=== PATIENT | female | born 1965 | race Native Hawaiian/Other Pacific Islander ===

== ENCOUNTER → 2018-02-16 | Outpatient (CLI) | payer OTHER ==
--- NOTE | 2018-02-16 11:00 | MM ---
Reason for exam: additional evaluation requested from prior study. Last mammogram was performed 4 years and 6 months ago. History: Patient is postmenopausal. Benign US RT VAD breast biopsy of the right breast, August 20, 2013. Physical Findings: Nurse Summary: less than 0.5cm nodule in the right breast at 11-12 o'clock (nurse kp). MG Diagnostic Mammo w CAD JAYSHREE Bilateral CC and MLO view(s) were taken. Prior study comparison: August 20, 2013, right diagnostic mammogram w/CAD. There are scattered fibroglandular densities. Previous mammotome biopsy in the right breast. Stable mass upper outer quadrant right breast at the biopsy site. Palpable marker superior right breast. Asymmetric densities central left breast just above the retroareolar plane disperse on additional view. These results were verbally communicated with the patient and result sheet given to the patient on 02/16/18. ASSESSMENT: Incomplete: need additional imaging evaluation, BI-RAD 0 RECOMMENDATION: Ultrasound of the right breast. (as ordered)
--- NOTE | 2018-02-16 11:03 | USB ---
Reason for exam: additional evaluation requested from abnormal screening. History: Patient is postmenopausal. Benign US RT VAD breast biopsy of the right breast, August 20, 2013. US Breast Limited RT Right limited breast ultrasound including focal area of concern, retroareolar and axilla demonstrates a 10 x 4 x 8mm oval, hypoechoic lesion at 11 o'clock, likely corresponds to the previous biopsied mass, 6 month follow up can be performed and a 4 x 3 x 5mm oval, cystic, benign lesion at 2 o'clock. Scanned 11-3 o'clock. 11 o'clock nurse palpated. These results were verbally communicated with the patient and result sheet given to the patient on 02/16/18. ASSESSMENT: Probably benign, BI-RAD 3 RECOMMENDATION: Follow-up diagnostic mammogram of the right breast in 6 months.
== END ==
LOC: RADMAMWWP 09:23
PROVIDERS: ATTEND Family Medicine
DX: R92.8 Other abnormal and inconclusive findings on diagnostic imaging of breast (principal)
CPT/HCPCS: 77066

== ENCOUNTER → 2018-08-17 | Outpatient (CLI) | payer OTHER ==
--- NOTE | 2018-08-17 13:57 | MM ---
Reason for exam: follow-up at short interval from prior study. Last mammogram was performed 6 months ago. History: Patient is postmenopausal. Benign US RT VAD breast biopsy of the right breast, August 20, 2013. Physical Findings: Nurse did not find any significant physical abnormalities on exam. MG Diagnostic Mammo RT w CAD CC and MLO view(s) were taken of the right breast. Prior study comparison: February 16, 2018, bilateral MG diagnostic mammo w CAD JAYSHREE. August 20, 2013, right diagnostic mammogram w/CAD. The breast tissue is heterogeneously dense. This may lower the sensitivity of mammography. Previous mammotome biopsy in the right breast. Associated focal asymmetry unchanged. Central asymmetric density on MLO is unchanged for 6 months. Additional follow up recommended. These results were verbally communicated with the patient and result sheet given to the patient on 08/17/18. ASSESSMENT: Probably benign, BI-RAD 3 RECOMMENDATION: Follow-up diagnostic mammogram of both breasts in 6 months.
== END | disposition home or self-care (01) ==
LOC: RADMAMWWP 12:43
PROVIDERS: ATTEND Family Medicine
DX: R92.8 Other abnormal and inconclusive findings on diagnostic imaging of breast (principal)
CPT/HCPCS: 77065

== ENCOUNTER → 2019-03-12 | Outpatient (CLI) | payer OTHER ==
--- NOTE | 2019-03-12 14:19 | MM ---
Reason for exam: additional evaluation requested from prior study. Last mammogram was performed 7 months ago. History: Patient is postmenopausal. Benign US RT VAD breast biopsy of the right breast, August 20, 2013. Physical Findings: Nurse did not find any significant physical abnormalities on exam. MG 3D Diag Mammo W/Cad JAYSHREE Bilateral CC and MLO view(s) were taken. Prior study comparison: August 17, 2018, right breast MG diagnostic mammo RT w CAD. February 16, 2018, bilateral MG diagnostic mammo w CAD JAYSHREE. The breast tissue is heterogeneously dense. This may lower the sensitivity of mammography. There is a stable right upper outer quadrant middle depth mass with adjacent biopsy marker. No suspicious abnormality. These results were verbally communicated with the patient and result sheet given to the patient on 03/12/19. ASSESSMENT: Benign, BI-RAD 2 RECOMMENDATION: Routine screening mammogram of both breasts in 1 year.
== END | disposition home or self-care (01) ==
LOC: RADMAMWWP 13:25
PROVIDERS: ATTEND Family Medicine
DX: R92.8 Other abnormal and inconclusive findings on diagnostic imaging of breast (principal)
CPT/HCPCS: 77062; 77066

== ENCOUNTER → 2020-07-05 | Outpatient (CLI) | payer OTHER ==
--- NOTE | 2020-07-07 13:30 | MM ---
Reason for exam: screening (asymptomatic). Last mammogram was performed 1 year and 4 months ago. History: Patient is postmenopausal. Benign US RT VAD breast biopsy of the right breast, August 20, 2013. Physical Findings: A clinical breast exam by your physician is recommended on an annual basis and results should be correlated with mammographic findings. MG Screening Mammo w CAD Bilateral CC and MLO view(s) were taken. Prior study comparison: March 12, 2019, bilateral MG 3d diag mammo w/cad JAYSHREE. August 17, 2018, right breast MG diagnostic mammo RT w CAD. No significant changes when compared with prior studies. ASSESSMENT: Benign, BI-RAD 2 RECOMMENDATION: Routine screening mammogram of both breasts in 1 year.
== END | disposition home or self-care (01) ==
LOC: RADMAMWWP 09:45
PROVIDERS: ATTEND Family Medicine
DX: Z12.31 Encounter for screening mammogram for malignant neoplasm of breast (principal)
CPT/HCPCS: 77067

== ENCOUNTER → 2021-08-21 | Outpatient (CLI) | payer OTHER ==
--- NOTE | 2021-08-22 08:26 | MM ---
Reason for exam: screening (asymptomatic). Last mammogram was performed 1 year and 2 months ago. History: Patient is postmenopausal. Benign US RT VAD breast biopsy of the right breast, August 20, 2013. Physical Findings: A clinical breast exam by your physician is recommended on an annual basis and results should be correlated with mammographic findings. MG 3D Screening Mammo W/Cad Bilateral CC and MLO view(s) were taken. Prior study comparison: July 05, 2020, bilateral MG screening mammo w CAD. March 12, 2019, bilateral MG 3d diag mammo w/cad JAYSHREE. There are scattered fibroglandular densities. Previous mammotome biopsy in the right breast. There is chronic nodularity in the right breast. There is no discrete abnormality. ASSESSMENT: Benign, BI-RAD 2 RECOMMENDATION: Routine screening mammogram of both breasts in 1 year.
== END | disposition home or self-care (01) ==
LOC: RADMAMWWP 09:41
PROVIDERS: ATTEND Family Medicine
DX: Z12.31 Encounter for screening mammogram for malignant neoplasm of breast (principal); Z78.0 Asymptomatic menopausal state
CPT/HCPCS: 77063; 77067

== ENCOUNTER → 2022-09-04 | Outpatient (CLI) | payer OTHER ==
--- NOTE | 2022-09-05 08:49 | MM ---
Reason for Exam: Screening (asymptomatic). Last mammogram was performed 1 year(s) and 1 month(s) ago. Patient History: Menarche at age 12. First Full-Term at age 18. Postmenopausal. 08/20/2013, Benign Core Biopsy on the right side. Risk Values: Noemi 5 year model risk: 1.3%. NCI Lifetime model risk: 7.2%. Prior Study Comparison: 03/12/2019 Bilateral Diagnostic Mammogram, [facility]. 07/05/2020 Bilateral Screening Mammogram, [facility]. 08/21/2021 Bilateral Screening Mammogram, [facility]. Tissue Density: The breast tissue is heterogeneously dense. This may lower the sensitivity of mammography. Findings: Analyzed By CAD. There is no suspicious group of microcalcifications or new suspicious mass in either breast. Chronic nodule right breast. Overall Assessment: Benign, BI-RAD 2 Management: Screening Mammogram of both breasts in 1 year. A clinical breast exam by your physician is recommended on an annual basis and results should be correlated with mammographic findings. Electronically signed and approved by: Noah Wild M.D. Radiologis
== END | disposition home or self-care (01) ==
LOC: RADMAMWWP 15:02
PROVIDERS: ATTEND Family Medicine
DX: Z12.31 Encounter for screening mammogram for malignant neoplasm of breast (principal); Z78.0 Asymptomatic menopausal state
CPT/HCPCS: 77063; 77067

== ENCOUNTER → 2022-10-17 | Outpatient (CLI) | payer OTHER ==
--- NOTE | 2022-10-18 06:20 | MR ---
EXAMINATION TYPE: MR shoulder LT wo con DATE OF EXAM: 10/17/2022 COMPARISON: None. HISTORY: left shoulder pain for 3 weeks TECHNIQUE: Multiplanar, multisequence imaging of the left shoulder is performed without contrast. FINDINGS: Rotator Cuff: Slight increased signal with adjacent fluid distal supraspinatus and infraspinatus tend ons. No tear is evident. Rotator cuff muscle bulk is preserved. Acromioclavicular Joint: Moderate to severe capsular hypertrophy. Moderate narrowing. Loss of underly ing fat plane noted coronal image 13 and sagittal image 14. Glenohumeral Joint: Small joint effusion. No significant spurring. Labrum: The labrum appears grossly intact given limitation of non-arthrogram study. Biceps Tendon: The long head of biceps is in normal location within bicipital groove. Bone marrow signal: Increased signal suspect subchondral cystic change at acromioclavicular joint. Other: No additional significant abnormality is appreciated. IMPRESSION: 1. AC joint arthropathy with suggestion of underlying impingement. Correlate clinically. Mild tendino sis of the rotator cuff tendons. No rotator cuff or labral tear seen.
== END | disposition home or self-care (01) ==
LOC: RADMRIMAIN 06:29
PROVIDERS: ATTEND Family Medicine
DX: M19.012 Primary osteoarthritis, left shoulder (principal); M25.812 Other specified joint disorders, left shoulder; M67.814 Other specified disorders of tendon, left shoulder; G89.29 Other chronic pain

== ENCOUNTER 2023-07-01 09:17 | Day surgery (SDC) | payer OTHER ==
[~2023-07-01 09:17] MED LIST: LACTATED RINGERS 1,000 ML IV SCH; LIDOCAINE 1% (10MG/ML) FOR IV START INTRADERMA PRN
[2023-07-01 10:44] VITALS: TEMP 97
[2023-07-01] MEDS ORDERED: PROPOFOL 10 MG/ML 20 ML VIAL IV ONE (11:16)
--- NOTE | 2023-07-01 11:32 | P.PCN ---
Date of Procedure: 07/01/23 Procedure(s) Performed: BRIEF HISTORY: Patient is a 57-year-old pleasant female scheduled for an elective colonoscopy as a part of screening for colon cancer. PROCEDURE PERFORMED: Colonoscopy. PREOPERATIVE DIAGNOSIS: Screening for colon cancer. IV sedation per Anesthesia. PROCEDURE: After informed consent was obtained, the patient, was brought into the endoscopy unit. IV sedation was administered by Anesthesia under continuous monitoring. Digital rectal examination was normal. Initially the Olympus CF-160 flexible video colonoscope was then inserted in the rectum, gradually advanced into the cecum without any difficulty. Careful examination was performed as the scope was gradually being withdrawn. Ileocecal valve and the appendiceal orifice were visualized and appeared normal. Prep was excellent. Mucosa of the cecum, ascending colon, transverse colon, descending colon, sigmoid colon, and rectum appeared normal. Retroflexion was performed in the rectum and no lesions were seen. The patient tolerated the procedure well. IMPRESSION: Normal-appearing colon from rectum to cecum with no evidence of colorectal neoplasia . RECOMMENDATIONS: Findings of this examination were discussed with the patient as well as a family family. She was advised to have a repeat screening colonoscopy in 10 years.
[2023-07-01 12:12] VITALS: BP 140/61; PULSE 67; RESP 17
== END 2023-07-01 12:30 | disposition home or self-care (01) ==
LOC: ORWHC2ENDO 09:17
PROVIDERS: ATTEND Internal Medicine Gastroenterology
DX: Z12.11 Encounter for screening for malignant neoplasm of colon (principal); I10 Essential (primary) hypertension; Z88.2 Allergy status to sulfonamides; Z79.899 Other long term (current) drug therapy
CPT/HCPCS: 45378; J2704

== ENCOUNTER → 2023-10-30 | Outpatient (CLI) | payer OTHER ==
--- NOTE | 2023-10-30 20:23 | MM ---
Reason for Exam: Screening (asymptomatic). Last mammogram was performed 1 year(s) and 1 month(s) ago. Patient History: Menarche at age 12. First Full-Term at age 18. Postmenopausal. Patient has history of breast feeding. 08/20/2013, Benign Core Biopsy on the right side. Risk Values: Noemi 5 year model risk: 1.5%. NCI Lifetime model risk: 5.2%. Prior Study Comparison: 08/17/2018 Right Diagnostic Mammogram, [facility]. 03/12/2019 Bilateral Diagnostic Mammogram, [facility]. 07/05/2020 Bilateral Screening Mammogram, [facility]. 08/21/2021 Bilateral Screening Mammogram, [facility]. 09/04/2022 Bilateral MG 3D screening mammo w/cad, [facility]. Tissue Density: There are scattered areas of fibroglandular density. Findings: Analyzed By CAD. Chronic nodularity right breast with microclip related to prior biopsy. Nodular asymmetry central right cc view has become more defined. Further evaluation is recommended. Otherwise, no significant change. Overall Assessment: Incomplete: need additional imaging evaluation, BI-RAD 0 Management: Special View Mammogram of the right breast. Diagnostic Breast Ultrasound of the right breast. Additional views to include spot 3-D CC, 3-D CC rolled, and [address] [facility] will attempt to contact patient to return for supplemental views and ultrasound if indicated. Electronically signed and approved by: Hiwot Hernandez M.D. Radiologist
== END ==
LOC: WWCWWP 08:32
PROVIDERS: ATTEND Family Medicine
DX: Z12.31 Encounter for screening mammogram for malignant neoplasm of breast (principal); R92.8 Other abnormal and inconclusive findings on diagnostic imaging of breast; Z78.0 Asymptomatic menopausal state; Z88.2 Allergy status to sulfonamides
CPT/HCPCS: 77063; 77067

== ENCOUNTER → 2023-11-07 | Outpatient (CLI) | payer OTHER ==
--- NOTE | 2023-11-07 08:39 | MM ---
Reason for Exam: Additional evaluation requested from abnormal screening. Last screening mammogram was performed less than 1 month ago. Patient History: Menarche at age 12. First Full-Term at age 18. Postmenopausal. Patient has history of breast feeding. 08/20/2013, Benign Core Biopsy on the right side. Risk Values: Noemi 5 year model risk: 1.5%. NCI Lifetime model risk: 5.2%. Prior Study Comparison: 08/20/2013 Right Diagnostic Mammogram, [facility]. 03/03/2014 Right Diagnostic Ultrasound, [facility]. 02/16/2018 Bilateral Diagnostic Mammogram, [facility]. 02/16/2018 Right Diagnostic Ultrasound, [facility]. 08/17/2018 Right Diagnostic Mammogram, [facility]. 03/12/2019 Bilateral Diagnostic Mammogram, [facility]. 07/05/2020 Bilateral Screening Mammogram, [facility]. 08/21/2021 Bilateral Screening Mammogram, [facility]. 09/04/2022 Bilateral MG 3D screening mammo w/cad, [facility]. 10/30/2023 Bilateral MG 3D screening mammo w/cad, [facility]. Tissue Density: Right: There are scattered areas of fibroglandular density. Findings: Analyzed By CAD. Along the retroareolar plane, on spot 3-D CC view, there appears to be a persisting 5 mm nodular asymmetric density, not well localized on the 3-D lateral view. Further ultrasound evaluation recommended. Upper outer quadrant nodule with hyperechoic relating to prior biopsy also redemonstrated. Overall Assessment: Incomplete: need additional imaging evaluation, BI-RAD 0 Management: Diagnostic Breast Ultrasound of the right breast. Electronically signed and approved by: Hiwot Hernandez M.D. Radiologist
--- NOTE | 2023-11-07 09:38 | USB ---
Reason for Exam: Additional evaluation requested from abnormal screening. Patient History: Menarche at age 12. First Full-Term at age 18. Postmenopausal. Patient has history of breast feeding. 08/20/2013, Benign Core Biopsy on the right side. Risk Values: Noemi 5 year model risk: 1.5%. NCI Lifetime model risk: 5.2%. Technique: Method: Targeted. Prior Study Comparison: 08/21/2021 Bilateral Screening Mammogram, [facility]. 09/04/2022 Bilateral MG 3D screening mammo w/cad, [facility]. 10/30/2023 Bilateral MG 3D screening mammo w/cad, [facility]. Findings: The axilla of the right breast and the retroareolar of the right breast were scanned. Targeted ultrasound subareolar and periareolar right breast including scanning of the axilla. At the 9:00 periareolar region, 1 cm from the nipple, there is a 8 x 4 mm cyst. Additional mild 5 mm duct ectasia behind the nipple. Either of these could be potential mammographic correlates. Six-month follow-up mammogram recommended. Overall Assessment: Probably benign, BI-RAD 3 Management: Diagnostic Mammogram of the right breast in 6 months. A clinical breast exam by your physician is recommended on an annual basis and results should be correlated with mammographic findings. This exam should not preclude additional follow-up of suspicious palpable abnormalities. Results were given to the patient verbally at the time of exam. Electronically signed and approved by: Hiwot Hernandez M.D. Radiologist
== END | disposition home or self-care (01) ==
LOC: RADMAMWWP 08:14
PROVIDERS: ATTEND Family Medicine
DX: N60.01 Solitary cyst of right breast (principal); N60.41 Mammary duct ectasia of right breast; R92.321 Mammographic fibroglandular density, right breast; Z78.0 Asymptomatic menopausal state
CPT/HCPCS: 77061; 77065

== ENCOUNTER → 2024-01-01 | Outpatient (CLI) | payer OTHER ==
[2024-01-01 14:11] VITALS: BP 138/88; RESP 15; TEMP 97.6
--- NOTE | 2024-01-01 14:46 | P.GSCN ---
History of Present Illness Consult date: 01/01/24 Reason for Consult: breast cyst Requesting physician: Mirta Leija History of present illness: Emiliana is a 58 year old female seen in consultation for Dr. Leija regarding a radiographic abnormality in the right breast. She had a bilateral mammogram on 10-30-23, which led to a right breast diagnostic mammogram and ultrasound. These showed an 8 by 4 mm cyst in the periareolar area at 1 cm from the nipple. Aditional 5mm duct ectasia behind the nipple. Six month follow up recommended. Complain of any lumps masses or nodules of concern in either breast. This was on a routine mammogram. She underwent an ultrasound guided core biopsy of the right breast in the remote past and was told that it was nothing to worry about. She is not complaining of any recent trauma or infection in the breast. Noemi risk: 1.5% at 5 years NCI lifetime risk 5.2% Caffeine: 1 cup coffee/day nicotine: none chocolate: occasional Family History: none of cancer Hormonal History: menarche: 13 , breast fed: yes, age at first : 18 menopause: 48 Surgical History: C section two Medical History: HTN Social History: nicotine: none alcohol: wine daily drugs: none Review of Systems - Constitutional Denies fever, Denies weight loss - EENT Eyes: denies blurred vision Ears: deny: decreased hearing, tinnitus Ears, nose, mouth and throat: Denies dysphagia - Breasts bilateral: as per HPI - Cardiovascular Denies chest pain, Denies shortness of breath - Respiratory Denies cough, Denies 7 - Gastrointestinal Reports as per HPI - Genitourinary Genitourinary: Denies dysuria, Denies hematuria Menstruation: Reports postmenopausal - Musculoskeletal Musculoskeleta Comment(s): left shoulder pain - Integumentary Denies rash, Denies unusual bruising - Neurological Denies headaches, Denies syncope - Psychiatric Reports as per HPI - Endocrine Reports as per HPI - Allergic/Immunologic Reports as per HPI Past Medical History Past Medical History: Hypertension, Musculoskeletal Disorder Additional Past Medical History / Comment(s): left shoulder pain History of Any Multi-Drug Resistant Organisms: None Reported Past Surgical History: Section, Tubal Ligation Past Anesthesia/Blood Transfusion Reactions: No Reported Reaction Additional Past Anesthesia/Blood Transfusion Reaction / Comm: no hx. transfusion reaction Smoking Status: Never smoker Past Alcohol Use History: Daily Additional Past Alcohol Use History / Comment(s): couple glasses of wine daily Past Drug Use History: None Reported Medications and Allergies Home Medications Medication Instructions Recorded Confirmed Type Multivitamins, Thera [Multivitamin 1 tab PO DAILY 06/27/23 07/01/23 History (formulary)] amLODIPine [Norvasc] 5 mg PO DAILY 06/27/23 07/01/23 History Allergies Allergy/AdvReac Type Severity Reaction Status Date / Time Sulfa (Sulfonamide Allergy Unknown Verified 07/01/23 10:14 Antibiotics) Surgical - Exam Vital Signs Temp Resp BP Pulse Ox 97.6 F 15 138/88 99 01/01/24 14:07 01/01/24 14:07 01/01/24 14:07 01/01/24 14:07 - General no distress - Eyes normal ocular movement - ENT no hearing loss - Neck trachea midline - Respiratory normal respiratory effort, clear to auscultation - Cardiovascular Rhythm: regular Heart Sounds: normal: S1, S2 - Abdomen Abdomen: soft, non tender, no guarding, no rigid, no rebound - Integumentary normal turgor - Neurologic no disoriented, no combative - Musculoskeletal normal gait - Psychiatric oriented to time, oriented to person, oriented to place, speech is normal, memory intact Breast Exam: BRA: 34C Inspection: Bilateral grade 2 ptosis Palpation: Right breast: Multi positional exam fibrocystic changes, no dominant masses or nodules of concern Right axilla: No adenopathy of concern Left breast: Multi positional exam fibrocystic changes no dominant masses or nodules of concern Left axilla: No adenopathy of concern Results Mammogram and ultrasound personally reviewed and interpreted Assessment and Plan Assessment: Impression: BI-RADS 3 right breast mammogram and ultrasound from 11-07-2023 Duct ectasia probable benign cyst right breast Fibrocystic breast changes Hypertension Bilateral mammogram from 10-30-2023 no lesions of concern identified in the left breast Plan: Repeat right breast mammogram and ultrasound in 6 months with examination at that time Bilateral mammogram in 1 year
== END ==
LOC: WWCWWP 13:51
PROVIDERS: ATTEND Surgery
DX: R92.8 Other abnormal and inconclusive findings on diagnostic imaging of breast (principal); N60.01 Solitary cyst of right breast; N60.11 Diffuse cystic mastopathy of right breast; N60.12 Diffuse cystic mastopathy of left breast; N60.41 Mammary duct ectasia of right breast; I10 Essential (primary) hypertension; Z88.2 Allergy status to sulfonamides; Z79.899 Other long term (current) drug therapy

== ENCOUNTER → 2024-06-07 | Outpatient (CLI) | payer OTHER ==
--- NOTE | 2024-06-07 13:53 | USB ---
Reason for Exam: Follow-up at short interval from prior study. Patient History: Menarche at age 12. First Full-Term at age 18. Postmenopausal. Patient has history of breast feeding. 08/20/2013, Benign Core Biopsy on the right side. Risk Values: Neomi 5 year model risk: 1.5%. NCI Lifetime model risk: 5.2%. Technique: Method: Targeted. Doppler: Color. Patient Position: Supine. Prior Study Comparison: 09/04/2022 Bilateral MG 3D screening mammo w/cad, [facility]. 10/30/2023 Bilateral MG 3D screening mammo w/cad, [facility]. 11/07/2023 Right MG 3D work up w/cad RT, [facility]. Findings: The periareolar of the right breast, the axilla of the right breast and the retroareolar of the right breast were scanned. Technique utilized:US breast limited RT Image; Ultrasound imaging of: Area of concern, retroareolar region and axilla. No evidence for organizing fluid collection or mass. Stable dilated duct in the retroareolar region, stable cyst at 9:00 1 cm the nipple measuring up to 5 mm. Overall Assessment: Benign, BI-RAD 2 Management: Screening Mammogram of both breasts in 1 year. A clinical breast exam by your physician is recommended on an annual basis and results should be correlated with mammographic findings. This exam should not preclude additional follow-up of suspicious palpable abnormalities. Results were given to the patient verbally at the time of exam. [facility], , 06/07/2024 1:50 PM. Electronically signed and approved by: Chava Webb DO
--- NOTE | 2024-06-07 13:53 | MM ---
Reason for Exam: Follow-up at short interval from prior study. Last screening mammogram was performed 8 month(s) ago. Patient History: Menarche at age 12. First Full-Term at age 18. Postmenopausal. Patient has history of breast feeding. 08/20/2013, Benign Core Biopsy on the right side. Risk Values: Noemi 5 year model risk: 1.5%. NCI Lifetime model risk: 5.2%. Prior Study Comparison: 09/04/2022 Bilateral MG 3D screening mammo w/cad, [facility]. 10/30/2023 Bilateral MG 3D screening mammo w/cad, [facility]. 11/07/2023 Right MG 3D work up w/cad RT, [facility]. Tissue Density: Right: The breasts are heterogeneously dense, which may obscure small masses. Findings: Analyzed By CAD. Nodule density remains present in the posterior nipple line slightly medial near the other biopsy clip on CC view approximately 4.0 cm the nipple measuring 6 mm. Overall Assessment: Incomplete: need additional imaging evaluation, BI-RAD 0 Management: Diagnostic Breast Ultrasound of the right breast. Results were given to the patient verbally at the time of exam. Patient should continue monthly self-breast exams. A clinical breast exam by your physician is recommended on an annual basis. This exam should not preclude additional follow-up of suspicious palpable abnormalities. Note on Noemi scores and lifetime risk: 1. A Noemi score greater than 3% is considered moderate risk. If this is the case, consider specialist referral to assess eligibility for a risk reducing agent. 2. If overall lifetime risk for the development of breast cancer is 20% or higher, the patient may qualify for future screening with alternating mammogram and breast MRI. [facility], , 06/07/2024 1:48 PM. Electronically signed and approved by: Chava Webb DO
== END | disposition home or self-care (01) ==
LOC: RADMAMWWP 13:04
PROVIDERS: ATTEND Surgery
DX: R92.8 Other abnormal and inconclusive findings on diagnostic imaging of breast (principal); Z78.0 Asymptomatic menopausal state; R92.331 Mammographic heterogeneous density, right breast; Z98.82 Breast implant status
CPT/HCPCS: 77061; 77065

== ENCOUNTER → 2024-06-17 | Outpatient (CLI) | payer OTHER ==
[2024-06-17 10:46] VITALS: BP 158/92; PULSE 68; RESP 17; TEMP 97.8
--- NOTE | 2024-06-17 10:53 | P.PN ---
Subjective Progress Note Date: 06/17/24 Principal diagnosis: breast cyst 06-17-24 Reason for Consult: breast cyst Requesting physician: Mirta Leija History of present illness: Emiliana is a 58 year old female seen in consultation for Dr. Leija regarding a radiographic abnormality in the right breast. She had a bilateral mammogram on 10-30-23, which led to a right breast diagnostic mammogram and ultrasound. These showed an 8 by 4 mm cyst in the periareolar area at 1 cm from the nipple. Aditional 5mm duct ectasia behind the nipple. Six month follow up recommended. Not complain of any lumps masses or nodules of concern in either breast. This was on a routine mammogram. She underwent an ultrasound guided core biopsy of the right breast in the remote past and was told that it was nothing to worry about. She is not complaining of any recent trauma or infection in the breast. Bilateral mammogram and right breast ulttrasound on 06-07-24 BIRAD 2 repeat bilateral mammogram in 1 year. Noemi risk: 1.5% at 3 years NCI lifetime risk 5.2% Caffeine: 1 cup coffee/day nicotine: none chocolate: occasional Family History: none of cancer Hormonal History: menarche: 13 , breast fed: yes, age at first : 18 menopause: 48 Surgical History: C section two Medical History: HTN Social History: nicotine: none alcohol: wine daily drugs: none Review of Systems - Constitutional Denies fever, Denies weight loss - EENT Eyes: denies blurred vision Ears: deny: decreased hearing, tinnitus Ears, nose, mouth and throat: Denies dysphagia - Breasts bilateral: as per HPI - Cardiovascular Denies chest pain, Denies shortness of breath - Respiratory Denies cough - Gastrointestinal Reports as per HPI - Genitourinary Genitourinary: Denies dysuria, Denies hematuria Menstruation: Reports postmenopausal - Musculoskeletal Musculoskeleta Comment(s): left shoulder pain - Integumentary Denies rash, Denies unusual bruising - Neurological Denies headaches, Denies syncope - Psychiatric Reports as per HPI - Endocrine Reports as per HPI - Allergic/Immunologic Reports as per HPI Past Medical History Past Medical History: Hypertension, Musculoskeletal Disorder Additional Past Medical History / Comment(s): left shoulder pain History of Any Multi-Drug Resistant Organisms: None Reported Past Surgical History: Section, Tubal Ligation Past Anesthesia/Blood Transfusion Reactions: No Reported Reaction Additional Past Anesthesia/Blood Transfusion Reaction / Comm: no hx. transfusion reaction Smoking Status: Never smoker Past Alcohol Use History: Daily Additional Past Alcohol Use History / Comment(s): couple glasses of wine daily Past Drug Use History: None Reported Medications and Allergies Home Medications Medication Instructions Recorded Confirmed Type Multivitamins, Thera [Multivitamin 1 tab PO DAILY 06/27/23 07/01/23 History (formulary)] amLODIPine [Norvasc] 5 mg PO DAILY 06/27/23 07/01/23 History Allergies Allergy/AdvReac Type Severity Reaction Status Date / Time Sulfa (Sulfonamide Allergy Unknown Verified 07/01/23 10:14 Antibiotics) Objective - Vital Signs Vital signs: Vital Signs Temp 97.8 F 06/17/24 10:43 Pulse 68 06/17/24 10:43 Resp 17 06/17/24 10:43 BP 158/92 06/17/24 10:43 Pulse Ox 98 06/17/24 10:43 FiO2 Intake & Output 06/16/24 06/17/24 06/17/24 18:59 06:59 18:59 Weight 63.503 kg - Constitutional General appearance: Present: cooperative - EENT Eyes: Present: EOMI ENT: Present: hearing grossly normal - Neck Neck: Present: normal ROM - Respiratory Respiratory: bilateral: CTA - Cardiovascular Rhythm: regular Heart sounds: normal: S1, S2 - Integumentary Integumentary: Present: normal turgor - Musculoskeletal Musculoskeletal: Present: gait normal - Psychiatric Psychiatric: Present: A&O x's 3, appropriate affect, intact judgment & insight - Additional findings Additional findings: Breast Exam: BRA: 34C Inspection: Bilateral grade 2 ptosis Palpation: Right breast: Multi positional exam fibrocystic changes, no dominant masses or nodules of concern Right axilla: No adenopathy of concern Left breast: Multi positional exam fibrocystic changes no dominant masses or nodules of concern Left axilla: No adenopathy of concern Assessment and Plan Assessment: Impression: Duct ectasia probable benign cyst right breast Fibrocystic breast changes Hypertension Bilateral mammogram 06-07-24 BIRAD 0, ultrasound right breast BIRAD 2 repeat bilateral mammogram in 1 year Plan: Repeat bilateral mammogram in 1 year follow up sooner any concerns CC: DR. Leija
== END ==
LOC: WWCWWP 09:09
PROVIDERS: ATTEND Surgery
DX: N60.41 Mammary duct ectasia of right breast (principal); N60.11 Diffuse cystic mastopathy of right breast; I10 Essential (primary) hypertension; R92.8 Other abnormal and inconclusive findings on diagnostic imaging of breast; Z88.2 Allergy status to sulfonamides